=== PATIENT | female | born 1950 | race Caucasian/White ===

== ENCOUNTER 2023-08-03 08:02 | Emergency (ER) | payer MEDICARE, SELFPAY ==
[2023-08-03] VITALS (8 sets, daily range): BP systolic 115–140; BP diastolic 64–80; PULSE 81; O2SAT 100; BMI 24.1
[2023-08-03 08:17] LABS: Glucose - Point of Care 91 mg/dl (70-99)
[2023-08-03 08:19] LABS: % Basophils 0.7 % (0-2); % Eosinophils 1.7 % (0-6); % Immature Granulocytes 0.2 % (0-0.5); % Lymphocytes 26.4 % (20.5-51.1); % Monocytes 8.5 % (1.7-9.3); % Neutrophils 62.5 % (42.2-75.2); Absolute Eosinophils 0.1 10^3/uL (0-0.7); Absolute Lymphocytes 1.6 10^3/uL (1.2-3.4); Absolute Monocytes 0.5 10^3/uL (0.1-0.6); Absolute Neutrophils 3.8 10^3/uL (1.4-6.5); Hematocrit 41.2 % (37.0-47.0); Mean Corpuscular Hgb 31.2 pg (27.0-31.0); Mean Corpuscular Volume 91.8 fL (81.0-99.0); Mean Platelet Volume 9.7 fL (7.4-10.4); Nucleated Red Blood Cells % 0 %; Platelet Count 237 10^3/uL (130-400); Red Blood Cell Count 4.49 10^6/uL (4.20-5.40); Red Cell Dist. Width 12.9 % (11.5-14.5)
--- NOTE | 2023-08-03 08:28 | ED.GENMED ---
History of Present Illness
General
Chief Complaint: Fainting Sensation
Time Seen by Provider: 08/03/23 08:08
Travel History
Have you had any contact with someone who has COVID-19?: No
Do you have any symptoms of coronavirus? Fever > 100 degrees, chills, cough, shortness of breath, sore throat, loss of taste or smell, muscle aches, or headache?: No
History of Present Illness
History of Present Illness:
72-year-old female with history of Sjogren syndrome and hyperlipidemia presents to the emergency department for evaluation of dizziness that has been ongoing for the past week or longer. She states she has had prior bouts of 'benign vertigo' while
performing yoga but this typically is short and self resolves. States that she had severe vertigo 8 days ago, followed up with her primary care provider who recommended outpatient vestibular therapy for likely benign vertigo. The patient notes
that during vestibular therapy the therapist was unable to provoke any peripheral symptoms. Patient notes that she had profound vertigo last night, took 1 dose of meclizine and fell asleep, upon awakening today she felt quite unsteady when
ambulating with moderate vertigo. Denies any nausea or vomiting. Denies any recent fevers or chills within the past month. No vision changes, neck pain, or extremity paresthesias. On my evaluation the patient has no symptoms while resting in bed
Past History
Past History
ED Past Medical History: None
ED Past Surgical History: None
Review of Systems
Review of Systems
Allergies reviewed?: Yes
All Other Systems: ROS reviewed and negative except as documented in HPI and ROS
Phy Exam
Physical Exam
Physical Exam:
GEN: Well appearing, NAD, WDWN
HEENT: Oral mucosa moist, no scleral icterus, no nasal congestion
Cardiac: Regular rate and rhythm no murmurs
Lung: No respiratory distress, no tachypnea
MSK: No gross deformity or injuries
Skin: Good color, no pallor or jaundice, no rashes
Neuro: AO x3; CN II-XII grossly intact. BUE strength 5/5 in all rosario, sensation intact and symmetric. BLE strength 5/5 in all rosario, sensation intact and symmetric. Normal [id number] and [id number]. Unable to provoke nystagmus with head
tilt testing, no nystagmus noted with position changes
Psych: Calm, cooperative
Course
Orders/Labs/Results
Orders:
Orders
08/03/23 08:05
EKG [Electrocardiogram (*1)] Urgent
Reason for Study: Vertigo / Dizzy
08/03/23 08:06
EKG- Treatment ONCE
08/03/23 08:07
Complete Blood Count/With Diff Urgent
Comprehensive Metabolic Panel Urgent
Troponin I Urgent
08/03/23 08:37
CT Head W/o Iv Contrast Urgent
Comment:
Reason For Exam: dizziness
08/03/23 10:34
Pt Eval And Treat Urgent
Treatment: vestibular
Activity Level: As Tolerated
Abnormal Lab Results
08/03/23
08:07
MCH 31.2 H pg
(27.0-31.0)
Glucose 101 H mg/dl
(70-99)
AST 38 H U/L
(14-36)
08/03/23 08:07
08/03/23 08:07
Vital Signs
Initial and Last Documented VS:
Initial Vital Signs
Pulse Resp Pulse Ox
95 15 99
08/03/23 08:05 08/03/23 08:05 08/03/23 08:05
Last Documented Vital Signs
Temp Pulse Resp BP Pulse Ox
98.0 F 83 12 126/64 96
08/03/23 08:07 08/03/23 12:45 08/03/23 12:45 08/03/23 12:19 08/03/23 12:45
MDM/Problems Addressed
MDM/Problems Addressed:
Patient's exam does not strongly suggest a peripheral vertigo however no nystagmus is elicited whatsoever my evaluation. Her symptoms certainly are fatigable with position. She was evaluated by physical therapy with similar findings as Michael and
Sophia-Hallpike maneuvers did not provoke any symptoms however she does have symptoms while transitioning from a supine to standing position. Her symptoms do not appear to be debilitating and she has no other focal neurologic deficits concerning for
CVA. Certainly does not have any viral prodrome to suggest vestibular neuritis however given the persistence of her symptoms over the past week or more it may be reasonable to trial a course of steroids. The patient prefers to see outpatient
physical therapy prior to considering steroids. I feel that this is reasonable given her exam findings today
Comment
Comment:
EKG independently interpreted by me shows normal sinus rhythm at a rate of [address] changes concerning for ischemia, QTc of 462
*Critical Care Note
Total Time (30-74mins, 75-104mins- exclusive of procedures): Not Applicable
ED Attending Note
-
Portions of this chart may have been created with voice recognition software.� Occasional wrong word or��sound alike� substitutions may have occurred due to the inherent limitations of voice recognition software.
Discharge Plan
Departure
Patient Disposition: Home (Routine Discharge)
Date of Disposition: 08/03/23
Time of Disposition: 12:45
Patient with high blood pressure during this ER visit?: No
Discharge Problem:
Vertigo
Instructions: Vertigo ED
Prescriptions:
New
methylprednisolone [Medrol (Taz)] 4 mg tablets,dose pack
See Rx Instructions .ROUTE .COMPLEX Qty: 21 0RF
Rx Instructions:
orally per package directions
No Action
Soothe Xp Eye Drops
1 dose BOTH EYES Q2H
Referrals:
Cori Tellez MD [Family Provider] -
Activity Restrictions/Additional Instructions:
Try the steroids if outpatient therapy does not improve symptoms
Interventions
Interventions:
*Risk Screen - Suicide Last Done: 08/03/23 08:07
*General Assessment Last Done: 08/03/23 08:07
*Neglect/Abuse Screening Last Done: 08/03/23 08:07
ED- Fall Risk Assessment Last Done: 08/03/23 08:07
*ED COVID-19 Vaccine History Last Done: 08/03/23 08:07
*Nursing Disposition Last Done: 08/03/23 13:01
ED- Cardiac Assessment Last Done: 08/03/23 08:07
ED- Neurological Assessment Last Done: 08/03/23 08:07
Discharge Date and Time
Discharge Date/Time: 08/03/23 13:03
[2023-08-03 08:30] LABS: ALT (SGPT) 34 U/L (0-35); AST (SGOT) 38 U/L (14-36); Albumin 4.9 g/dl (3.5-5.0); Alkaline Phosphatase 91 U/L (38-126); Blood Urea Nitrogen 14 mg/dl (7-17); Calcium 9.6 mg/dl (8.4-10.2); Carbon Dioxide 27 mmol/L (22-30); Chloride 104 mmol/L (98-107); Estimated Creatinine Clearance 82 ml/min; Glucose 101 mg/dl (70-99); Potassium 4.3 mmol/L (3.5-5.1); Sodium 136 mmol/L (135-145); Total Protein 7.9 g/dl (6.3-8.2); eGFR > 60.00
[2023-08-03 08:42] LABS: Troponin I < 0.012 ng/ml
== END 2023-08-03 13:03 | disposition home or self-care (01) ==
LOC: EMR 08:02
PROVIDERS: EMERGENCY PHYSICIAN Emergency Medicine; FAMILY PHYSICIAN Family Medicine
DX: R42 Dizziness and giddiness (principal); E78.5 Hyperlipidemia, unspecified
CPT/HCPCS: 99285; 70450; 80053; 82962; 84484; 85025; 93005

== ENCOUNTER → 2024-09-21 06:39 | Outpatient (REF) | payer MEDICARE, SELFPAY | LOC: MRI 3T 06:39 | PROVIDERS: ATTENDING PHYSICIAN Physician Assistant Surgical; FAMILY PHYSICIAN Family Medicine | DX: M25.061 Hemarthrosis, right knee (principal) | CPT/HCPCS: 73721 ==

== ENCOUNTER → 2024-09-25 10:47 | Outpatient (REF) | payer MEDICARE, SELFPAY | LOC: RAD 10:47 | PROVIDERS: ATTENDING PHYSICIAN Family Medicine | DX: M81.0 Age-related osteoporosis without current pathological fracture (principal); Z78.0 Asymptomatic menopausal state | CPT/HCPCS: 77080 ==

== ENCOUNTER 2024-12-12 11:15 | Outpatient (RCR) | payer MEDICARE, SELFPAY | END 2024-12-12 23:59 | disposition home or self-care (01) | LOC: RPT 11:15 | PROVIDERS: ATTENDING PHYSICIAN Orthopaedic Surgery; FAMILY PHYSICIAN Family Medicine | DX: S82.124D Nondisplaced fracture of lateral condyle of right tibia, subsequent encounter for closed fracture with routine healing (principal); Z73.6 Limitation of activities due to disability; R26.89 Other abnormalities of gait and mobility; M62.81 Muscle weakness (generalized); W01.0XXD Fall on same level from slipping, tripping and stumbling without subsequent striking against object, subsequent encounter | CPT/HCPCS: 97110; 97112; 97162; 97530 ==

== ENCOUNTER 2024-12-27 13:59 | Outpatient (RCR) | payer MEDICARE, SELFPAY | END 2024-12-27 23:59 | disposition home or self-care (01) | LOC: RPT 13:59 | PROVIDERS: ATTENDING PHYSICIAN Orthopaedic Surgery; FAMILY PHYSICIAN Family Medicine | DX: S82.124D Nondisplaced fracture of lateral condyle of right tibia, subsequent encounter for closed fracture with routine healing (principal); Z73.6 Limitation of activities due to disability; R26.89 Other abnormalities of gait and mobility; M62.81 Muscle weakness (generalized); W01.0XXD Fall on same level from slipping, tripping and stumbling without subsequent striking against object, subsequent encounter | CPT/HCPCS: 97110; 97112; 97530 ==

== ENCOUNTER 2025-01-14 16:56 | Outpatient (RCR) | payer MEDICARE, SELFPAY | END 2025-01-15 11:30 | disposition home or self-care (01) | LOC: RPT 16:56 | PROVIDERS: ATTENDING PHYSICIAN Orthopaedic Surgery; FAMILY PHYSICIAN Family Medicine | DX: S82.124D Nondisplaced fracture of lateral condyle of right tibia, subsequent encounter for closed fracture with routine healing (principal); Z73.6 Limitation of activities due to disability; R26.89 Other abnormalities of gait and mobility; M62.81 Muscle weakness (generalized); W01.0XXD Fall on same level from slipping, tripping and stumbling without subsequent striking against object, subsequent encounter | CPT/HCPCS: 97110 ==